=== PATIENT | female | born 1970 | race Caucasian/White ===

== ENCOUNTER 2016-06-28 13:25 | Emergency (ER) | payer BC, OTHER ==
[2016-06-28 13:54] VITALS: BP 111/65
--- NOTE | 2016-06-28 14:41 | UC ---
UC General HPI - HPI Summary HPI Summary: complaint of rash on her head that started 2 weeks ago tried lotirimin without relief complaint of new rash on her back legs and arms the rash started approx 1 week ago itching is worse at night when she has hot flashes has been using hydrocortisone cream /lotrim without any relief denies fever, denies new medications, foods, soaps lotions foods tried any new laundry soap for several days - History of Current Complaint Hx Obtained From: Patient <Lilliana Kam - Last Filed: 06/28/16 14:51> <Arsenio Power - Last Filed: 06/29/16 11:16> - History of Current Complaint Chief Complaint: UCSkin Stated Complaint: RASH - Allergy/Home Medications Allergies/Adverse Reactions: Allergies Allergy/AdvReac Type Severity Reaction Status Date / Time No Known Allergies Allergy Verified 09/27/15 19:45 PMH/Surg Hx/FS Hx/Imm Hx Previously Healthy: Yes Endocrine History Of: Denies: Diabetes, Thyroid Disease Cardiovascular History Of: Denies: Cardiac Disorders, Hypertension Respiratory History Of: Denies: COPD, Asthma GI/ History Of: Denies: Ulcer - Surgical History Surgical History: Yes Surgery Procedure, Year, and Place: Tubal, 2 C sections - Family History Known Family History: Positive: Hypertension Negative: Cardiac Disease, Diabetes - Social History Occupation: Employed Full-time Lives: With Family Alcohol Use: None Substance Use Type: None Smoking Status (MU): Light Every Day Tobacco Smoker Type: Cigarettes Amount Used/How Often: 6 cig./day Cessation Counseling: Patient Advised to Stop <Lilliana Kam - Last Filed: 06/28/16 14:51> Review of Systems Constitutional: Negative Skin: Rash Eyes: Negative ENT: Negative Respiratory: Negative Cardiovascular: Negative Gastrointestinal: Negative Genitourinary: Negative Motor: Negative Neurovascular: Negative Musculoskeletal: Negative Neurological: Negative Psychological: Negative All Other Systems Reviewed And Are Negative: Yes <Lilliana Kam - Last Filed: 06/28/16 14:51> Physical Exam Triage Information Reviewed: Yes Appearance: Well-Appearing, No Pain Distress, Well-Nourished Vital Signs: Initial Vital Signs Temp 98.2 F 06/28/16 13:49 Pulse 71 06/28/16 13:49 Resp 16 06/28/16 13:49 BP 111/65 06/28/16 13:49 Pulse Ox 98 06/28/16 13:49 Vital Signs Reviewed: Yes Eyes: Positive: Conjunctiva Clear ENT: Positive: Pharynx normal, TMs normal. Negative: Nasal congestion Neck: Positive: No Lymphadenopathy Respiratory: Positive: Lungs clear, Normal breath sounds, No respiratory distress, No accessory muscle use Cardiovascular: Positive: RRR, No Murmur, Pulses Normal Abdomen Description: Positive: Nontender, Soft Bowel Sounds: Positive: Present Musculoskeletal: Positive: No Edema Neurological: Positive: Alert Psychological Exam: Normal Skin: Positive: Other - right side of head- erythemaotus rash with yellow scaling -scattered areas of erythematous rash on arms and torso <Lilliana Kam - Last Filed: 06/28/16 14:51> Vital Signs: Initial Vital Signs Temp 98.2 F 06/28/16 13:49 Pulse 71 06/28/16 13:49 Resp 16 06/28/16 13:49 BP 111/65 06/28/16 13:49 Pulse Ox 98 06/28/16 13:49 <Arsenio Power - Last Filed: 06/29/16 11:16> Course/Dx - Differential Dx - Multi-Symptom Provider Diagnoses: impetigo, contact dermatitis <Lilliana Kam - Last Filed: 06/28/16 14:51> - Course Course Of Treatment: I was available for consultation. This patient was seen by mid level provider. The patient was not presented, seen, or examined by me. WR. <Arsenio Power - Last Filed: 06/29/16 11:16> Discharge <Lilliana Kam - Last Filed: 06/28/16 14:51> <Arsenio Power - Last Filed: 06/29/16 11:16> - Discharge Plan Condition: Stable Disposition: HOME Prescriptions: Mupirocin 2% OINT* [Bactroban 2 % Oint*] 1 applic TOPICAL BID #1 tube diPHENhydraMINE 2% CREAM(NF) [Benadryl 2% CREAM (NF)] 1 applic TOPICAL TID #1 tube Patient Education Materials: Contact Dermatitis (ED), Impetigo (ED) Referrals: Sana Bridges [Nurse Practitioner] - Additional Instructions: Start creams as directed Increase fluids and rest Please review your discharge instructions. If your symptoms do not improve please call your primary care provider or return to urgent care
== END 2016-06-28 15:06 | disposition home or self-care (01) ==
LOC: UCEAST 13:25
DX: L01.00 Impetigo, unspecified (principal); L25.9 Unspecified contact dermatitis, unspecified cause; F17.210 Nicotine dependence, cigarettes, uncomplicated
CPT/HCPCS: 99212; G0463

== ENCOUNTER 2016-09-13 15:40 | Emergency (ER) | payer BC ==
[2016-09-13 15:53] VITALS: BP 118/77
--- NOTE | 2016-09-13 16:08 | UC ---
Skin Complaint HPI - HPI Summary HPI Summary: rash on back of neck , arm, waist on left leg for 3 months--treated with bactroban and benadryl cream without relief- - History of Current Complaint Chief Complaint: UCRash Time Seen by Provider: 09/13/16 15:57 Stated Complaint: RASH Hx Obtained From: Patient Hx Last Menstrual Period: 08/17/16 ?: No Onset/Duration: Gradual Onset, Lasting Weeks, Still Present Timing: Constant Onset Severity: Moderate Current Severity: Moderate - awakes itching in the night-- Location: Diffuse Character: Pruritus, Raised Aggravating: Nothing Alleviating: Other - bactroban and benadryl cream Associated Signs & Symptoms: Positive: Rash - Allergy/Home Medications Allergies/Adverse Reactions: Allergies Allergy/AdvReac Type Severity Reaction Status Date / Time No Known Allergies Allergy Verified 09/13/16 15:54 Review of Systems Constitutional: Negative Skin: Rash Eyes: Negative ENT: Negative Respiratory: Negative Cardiovascular: Negative Gastrointestinal: Negative Genitourinary: Negative Motor: Negative Neurovascular: Negative Musculoskeletal: Negative Neurological: Negative Psychological: Negative All Other Systems Reviewed And Are Negative: Yes PMH/Surg Hx/FS Hx/Imm Hx Previously Healthy: Yes - Surgical History Surgical History: Yes Surgery Procedure, Year, and Place: Tubal, 2 C sections - Family History Known Family History: Positive: Hypertension Negative: Cardiac Disease, Diabetes - Social History Occupation: Employed Full-time Lives: With Family Alcohol Use: None Substance Use Type: None Smoking Status (MU): Light Every Day Tobacco Smoker Type: Cigarettes Amount Used/How Often: 6 cig./day Cessation Counseling: Patient Advised to Stop Physical Exam Triage Information Reviewed: Yes Appearance: Well-Appearing, No Pain Distress, Well-Nourished Vital Signs: Initial Vital Signs Temp 98.3 F 09/13/16 15:49 Pulse 89 09/13/16 15:49 Resp 18 09/13/16 15:49 BP 118/77 09/13/16 15:49 Pulse Ox 100 09/13/16 15:49 Vital Signs Reviewed: Yes Eye Exam: Normal Eyes: Positive: Conjunctiva Clear ENT Exam: Normal ENT: Positive: Normal ENT inspection, Hearing grossly normal, Pharynx normal, TMs normal. Negative: Nasal congestion, Nasal drainage, Tonsillar swelling, Tonsillar exudate, Trismus, Muffled/hoarse voice Dental Exam: Normal Neck exam: Normal Neck: Positive: Supple, Nontender Respiratory Exam: Normal Respiratory: Positive: Chest non-tender, No respiratory distress, No accessory muscle use Cardiovascular Exam: Normal Cardiovascular: Positive: RRR, No Murmur, Pulses Normal, Brisk Capillary Refill Musculoskeletal Exam: Normal Musculoskeletal: Positive: Strength Intact, ROM Intact, No Edema Neurological Exam: Normal Neurological: Positive: Alert, Muscle Tone Normal Psychological Exam: Normal Skin Exam: Normal Skin: Positive: rashes - as described Course/Dx - Course Course Of Treatment: prednisone, steroid cream, follow with dermatology - Differential Diagnoses - Skin Complaint Differential Diagnoses: Cellulitis, Contact Dermatitis, Impetigo - Diagnoses Provider Diagnoses: Atopic Dermatitis Discharge - Discharge Plan Condition: Stable Disposition: HOME Prescriptions: Triamcinolone 0.1% CREAM(NF) [Kenalog Cream 0.1%(NF)] 1 applic TOPICAL TID #60 gm predniSONE TAB* [Deltasone TAB*] 20 mg PO DAILY #8 tab Patient Education Materials: Contact Dermatitis (ED) Referrals: [facility] [Outside] (As for a dermatology appointment-----in 2 weeks)
== END 2016-09-13 16:26 | disposition home or self-care (01) ==
LOC: UCEAST 15:40
DX: L20.9 Atopic dermatitis, unspecified (principal); F17.210 Nicotine dependence, cigarettes, uncomplicated
CPT/HCPCS: 99212; G0463

== ENCOUNTER 2019-01-27 11:58 | Emergency (ER) | payer SELFPAY ==
[2019-01-27 13:03] VITALS: BP 120/73
--- NOTE | 2019-01-27 13:14 | UC ---
Throat Pain/Nasal Babatunde HPI - HPI Summary HPI Summary: This patient is a 48-year-old male who presents to the urgent care with a chief complaint sore throat, body aches, painful swallowing. She also reports chills and she thinks she might have a fever. She has no other complaints. - History of Current Complaint Chief Complaint: UCRespiratory Stated Complaint: SORE THROAT Time Seen by Provider: 01/27/19 13:00 Hx Obtained From: Patient Hx Last Menstrual Period: 3 months ago Onset/Duration: Gradual Onset Severity: Mild Pain Intensity: 4 - Allergies/Home Medications Allergies/Adverse Reactions: Allergies Allergy/AdvReac Type Severity Reaction Status Date / Time No Known Allergies Allergy Verified 01/27/19 13:03 Home Medications: Home Medications Ibuprofen TAB* [Advil TAB*] 400 mg PO Q6H PRN 01/27/19 [History Confirmed ] PMH/Surg Hx/FS Hx/Imm Hx Previously Healthy: Yes - Surgical History Surgical History: Yes Surgery Procedure, Year, and Place: Tubal, 2 C sections - Family History Known Family History: Positive: Hypertension Negative: Cardiac Disease, Diabetes - Social History Alcohol Use: Rare Substance Use Type: None Smoking Status (MU): Light Every Day Tobacco Smoker Type: Cigarettes Amount Used/How Often: 5-8 cig./day Review of Systems All Other Systems Reviewed And Are Negative: Yes Constitutional: Positive: Fever, Chills Skin: Positive: Negative Eyes: Positive: Negative ENT: Positive: Sore Throat Respiratory: Positive: Negative Cardiovascular: Positive: Negative Gastrointestinal: Positive: Negative Genitourinary: Positive: Negative Motor: Positive: Negative Neurovascular: Positive: Negative Musculoskeletal: Positive: Negative Neurological: Positive: Negative Psychological: Positive: Negative Is Patient Immunocompromised?: No Physical Exam - Summary Physical Exam Summary: Vital signs: Reviewed Gen.: Patient is a well developed and nourished female in no acute distress. Patient is sitting comfortably on the stretcher. Head: Normacephalic and atraumatic Eyes: PERRLA, EOMI x2. Ears: Right ear canal and TM WNL Left ear canal and TM WNL Nose Nose with dry mucosa and clear discharge. No sinus tenderness and mouth: Positive pharyngeal erythema with positive exudate. Neck: Supple, positive bilateral submandibular and anterior cervical lymphadenopathy. No JVD Lungs: CTA B/L CVS: S1 & S2 present. No murmurs appreciated. ABDOMEN: Soft NT w/ positive BS. EXT: FROM x 4 NEURO: A+O X 3. Triage Information Reviewed: Yes Appearance: Well-Appearing Vital Signs: Initial Vital Signs Temp 98.6 F 01/27/19 12:57 Pulse 90 01/27/19 12:57 Resp 16 01/27/19 12:57 BP 120/73 01/27/19 12:57 Pulse Ox 96 01/27/19 12:57 Vital Signs Reviewed: Yes Throat Pain/Nasal Course/Dx - Course Course Of Treatment: Rapid strep: Negative However the patient has exudates therefore the patient has a bacterial pharyngitis. Therefore he was given a prescription for Augmentin for 10 days. The patient was instructed to follow with the primary care physician. She was instructed to return to the emergency department if the symptoms worsen. She understands and agrees - Differential Dx/Diagnosis Provider Diagnosis: Pharyngitis Discharge ED - Sign-Out/Discharge Documenting (check all that apply): Patient Departure All imaging exams completed and their final reports reviewed: No Studies - Discharge Plan Condition: Stable Disposition: HOME Prescriptions: Amoxicillin/Clavulanate TAB* [Augmentin TAB 875*] 875 mg PO BID #20 tab Patient Education Materials: Pharyngitis (ED) Referrals: [facility] [place] [facility] [Outside] No Primary Care Phys,NOPCP [Primary Care Provider] - Additional Instructions: Take medications as instructed Increase your fluid intake F/U with PCP in the next 2-3 days Return to the if symptoms worsen - Billing Disposition and Condition Condition: STABLE Disposition: Home
== END 2019-01-27 13:19 | disposition home or self-care (01) ==
LOC: UCEAST 11:58
DX: J02.9 Acute pharyngitis, unspecified (principal); F17.210 Nicotine dependence, cigarettes, uncomplicated
CPT/HCPCS: 87651; 99212; G0463

== ENCOUNTER 2019-06-01 09:52 | Emergency (ER) | payer BC ==
[2019-06-01 10:02] VITALS: BP 112/75
--- NOTE | 2019-06-01 10:05 | UC ---
Complaint Female HPI - HPI Summary HPI Summary: 48 yo female presents with LEFT flank pain. She tells me that for the last 2-3 days she has been having left flank pain that radiates to her left abdomen and LLQ abdomen. Last night pain significantly increased and she had trouble sleeping. She has noticed that her urine seems malodorous during this time. Area hurts with movement and palpating the area. She has not taken anything OTC for her symptoms. She has never had a kidney stone in the past. Denies fever, chills, n/v, dysuria, hematuria, vaginal bleeding or discharge. No injury. - History Of Current Complaint Chief Complaint: UCGU Stated Complaint: SIDE PAIN Time Seen by Provider: 06/01/19 10:03 Hx Obtained From: Patient Hx Last Menstrual Period: 3 months ago Onset/Duration: Sudden Onset Timing: Constant Severity Initially: Mild Severity Currently: Moderate Pain Intensity: 5 Pain Scale Used: 0-10 Numeric - Allergies/Home Medications Allergies/Adverse Reactions: Allergies Allergy/AdvReac Type Severity Reaction Status Date / Time No Known Allergies Allergy Verified 06/01/19 09:57 Home Medications: Home Medications NK [No Home Medications Reported] 06/01/19 [History Confirmed 06/01/19] PMH/Surg Hx/FS Hx/Imm Hx - Additional Past Medical History Additional PMH: None - Surgical History Surgical History: Yes Surgery Procedure, Year, and Place: Tubal, 2 C sections - Family History Known Family History: Positive: Hypertension Negative: Cardiac Disease, Diabetes - Social History Lives: With Family Alcohol Use: None Substance Use Type: None Smoking Status (MU): Light Every Day Tobacco Smoker Type: Cigarettes Amount Used/How Often: 5-8 cig./day Review of Systems All Other Systems Reviewed And Are Negative: No Constitutional: Positive: Negative Skin: Positive: Negative Respiratory: Positive: Negative Cardiovascular: Positive: Negative Gastrointestinal: Positive: Negative Genitourinary: Positive: Other - Flank pain Neurovascular: Positive: Negative Musculoskeletal: Positive: Negative Neurological/Mental Status: Positive: Negative Psychological: Positive: Negative Physical Exam - Summary Physical Exam Summary: GENERAL: NAD. WDWN. No pain distress. SKIN: No rashes, sores, lesions, or open wounds. NECK: Supple. Nontender. No lymphadenopathy. CHEST: CTAB. No r/r/w. No accessory muscle use. Breathing comfortably and in no distress. CV: RRR. Pulses intact. Cap refill <2seconds ABDOMEN: Soft. NTTP. No distention or guarding. Mild LEFT CVA tenderness. Bowel sounds present MSK: Pain in left CVA area with raising arms above head and truncal twisting. NEURO: Alert. PSYCH: Age appropriate behavior. Triage Information Reviewed: Yes Vital Signs: Initial Vital Signs Temp 98.1 F 06/01/19 09:57 Pulse 90 06/01/19 09:57 Resp 18 06/01/19 09:57 BP 112/75 06/01/19 09:57 Pulse Ox 99 06/01/19 09:57 Laboratory Tests 06/01/19 06/01/19 10:10 10:12 POC Urine Color Yellow POC Urine Clarity Slightly cloudy POC Urine pH 6.5 POC Ur Specif [place] 1.020 POC Urine Protein Negative POC Ur Glucose (UA) Negative POC Urine Ketones Negative POC Urine Blood 1+ A POC Urine Nitrite Negative POC Urine Bilirubin Negative POC Urine Urobilinogen 0.2 POC U Leukocyte Esteras Negative POC Ur Test Negative Vital Signs Reviewed: Yes Complaint Female Dx - Course Course Of Treatment: UA as above. Given her microscopic hematuria, left flank pain with radiation into left abdomen, and CVA tenderness - recommend going to ED for concern of kidney stone. Also possible MSK strain. - Differential Dx/Diagnosis Provider Diagnosis: Left flank pain Discharge ED - Sign-Out/Discharge Documenting (check all that apply): Patient Departure All imaging exams completed and their final reports reviewed: No Studies - Discharge Plan Condition: Stable Disposition: HOME-RECOMMEND TO ED Referrals: No Primary Care Phys,NOPCP [Primary Care Provider] - Additional Instructions: I recommend that you go to the ER for further evaluation of your flank pain. Concern for kidney stone today - Billing Disposition and Condition Condition: STABLE Disposition: Home-Recommend to ED
== END 2019-06-01 10:25 | disposition home health service (06) ==
LOC: UCEAST 09:52
DX: R10.32 Left lower quadrant pain (principal); F17.210 Nicotine dependence, cigarettes, uncomplicated
CPT/HCPCS: 81003; 84702; 99212; G0463

== ENCOUNTER 2019-06-01 11:47 | Emergency (ER) | payer BC ==
[2019-06-01 12:22] LABS: ABS Basophils 0.1 10^3/ul (0-0.2); ABS Eosinophils 0.1 10^3/ul (0-0.6); ABS Lymphocytes 2.8 10^3/ul (1.0-4.8); ABS Monocytes 0.5 10^3/ul (0-0.8); ABS Neutrophils 5.1 10^3/ul (1.5-7.7); Eosinophil % 1.1 %; Hematocrit 42 % (35-47); Hemoglobin 14.5 g/dL (12.0-16.0); Lymphocyte % 32.9 %; Mean Corpuscular HGB Conc 35 g/dL (31-36); Mean Corpuscular Hemoglobin 32 pg (27-31); Mean Corpuscular Volume 91 fL (80-97); Mean Platelet Volume 8.8 fL (7.4-10.4); Platelet Count 232 10^3/uL (150-450); Red Blood Count 4.58 10^6 /uL (3.70-4.87); Red Cell Distribution Width 14 % (10-15); White Blood Count 8.7 10^3/uL (3.5-10.8)
[2019-06-01 12:43] LABS: ALT 11 U/L (7-52); AST 15 U/L (13-39); Albumin 4.5 g/dL (3.2-5.2); Albumin/Globulin Ratio 1.8 (1-3); Alkaline Phosphatase 79 U/L (34-104); Anion Gap 6 mmol/L (2-11); BUN/Creatinine Ratio 21.1 (8-20); Blood Urea Nitrogen 16 mg/dL (6-24); C Reactive Protein < 1.00 mg/L (<8.01); CO2 Carbon Dioxide 25 mmol/L (22-32); Calcium 9.4 mg/dL (8.6-10.3); Chloride 107 mmol/L (101-111); EGFR African American 97.9 (>60); EGFR Non-African American 80.9 (>60); Globulin 2.5 g/dL (2-4); Glucose 94 mg/dL (70-100); Potassium 4.3 mmol/L (3.5-5.0); Sodium 138 mmol/L (135-145)
--- NOTE | 2019-06-01 12:46 | ED ---
Abdominal Pain/Female - HPI Summary HPI Summary: This patient is presenting to the ED with left-sided flank pain times approximately 2 weeks. She states the symptoms have been worsening over the past 3 days. She is endorsing pain to the left flank radiating around to the side into the left lower quadrant. Denies any urinary symptoms. Denies denies any vaginal discharge. Denies any nausea or vomiting currently, however she has intermittently had some nausea over the past few weeks. She denies any fevers or chills, however has been having intermittent sweats. She states she is having night sweats and this is typical for her with hormonal changes. Denies diarrhea or constipation. NO chest pain or SOB. - History of Current Complaint Chief Complaint: EDFlankPain Stated Complaint: POSS KIDNEY STONES PER PT Time Seen by Provider: 06/01/19 12:08 Hx Obtained From: Patient Hx Last Menstrual Period: 3 months ago ?: No Onset/Duration: Sudden Onset Timing: Constant Severity Initially: Moderate Severity Currently: Moderate Pain Intensity: 5 Pain Scale Used: 0-10 Numeric Radiates: No Aggravating Factor(s): Nothing Alleviating Factor(s): Nothing Associated Signs and Symptoms: Positive: Negative - Risk Factors Ectopic Risk Factor: Negative Ovarian Torsion Risk Factor: Negative Allergies/Adverse Reactions: Allergies Allergy/AdvReac Type Severity Reaction Status Date / Time No Known Allergies Allergy Verified 06/01/19 11:50 Home Medications: Home Medications NK [No Home Medications Reported] 06/01/19 [History Confirmed 06/01/19] PMH/Surg Hx/FS Hx/Imm Hx Previously Healthy: Yes Endocrine/Hematology History: Denies: Hx Diabetes, Hx Thyroid Disease Cardiovascular History: Denies: Hx Hypertension Respiratory History: Denies: Hx Asthma, Hx Chronic Obstructive Pulmonary Disease (COPD) GI History: Denies: Hx Ulcer - Surgical History Surgery Procedure, Year, and Place: Tubal, 2 C sections - Immunization History Hx Pertussis Vaccination: No Immunizations Up to Date: Yes Infectious Disease History: No Infectious Disease History: Denies: Hx Hepatitis, Hx Human Immunodeficiency Virus (HIV), History Other Infectious Disease, Traveled Outside the [place] in Last 30 Days - Family History Known Family History: Positive: Hypertension Negative: Cardiac Disease, Diabetes - Social History Occupation: Unemployed Lives: With Family Alcohol Use: None Hx Substance Use: No Substance Use Type: Reports: None Smoking Status (MU): Light Every Day Tobacco Smoker Type: Cigarettes Amount Used/How Often: 5-8 cig./day Review of Systems Negative: Fever, Chills, Fatigue, Skin Diaphoresis Negative: Palpitations, Chest Pain Negative: Shortness Of Breath, Cough Positive: Abdominal Pain, Nausea. Negative: Vomiting, Diarrhea Positive: hematuria Negative: Myalgia Negative: Rash, Bruising Neurological/Mental Status: Negative All Other Systems Reviewed And Are Negative: Yes Physical Exam Triage Information Reviewed: Yes Vital Signs On Initial Exam: Initial Vitals Temp Pulse Resp BP Pulse Ox 98.0 F 94 16 123/88 98 06/01/19 11:48 06/01/19 11:48 06/01/19 11:48 06/01/19 11:48 06/01/19 11:48 Vital Signs Reviewed: Yes Appearance: Positive: Well-Appearing, Well-Nourished Skin: Positive: Warm, Skin Color Reflects Adequate Perfusion Head/Face: Positive: Normal Head/Face Inspection Eyes: Positive: EOMI, JOHANA, Conjunctiva Clear Neck: Positive: Supple, No Lymphadenopathy Respiratory/Lung Sounds: Positive: Clear to Auscultation, Breath Sounds Present Cardiovascular: Positive: Pulses are Symmetrical in both Upper and Lower Extremities Abdomen Description: Positive: Nontender, No Organomegaly, CVA Tenderness (R). Negative: CVA Tenderness (L), Distended, Guarding Musculoskeletal: Positive: Normal, Strength/ROM Intact Neurological: Positive: Speech Normal Psychiatric: Positive: Normal, Affect/Mood Appropriate AVPU Assessment: Alert Procedures - Sedation Patient Received Moderate/Deep Sedation with Procedure: No Diagnostics - Vital Signs Vital Signs Temp Pulse Resp BP Pulse Ox 06/01/19 11:48 98.0 F 94 16 123/88 98 - Laboratory Lab Results: Lab Results 06/01/19 Range/Units 12:16 WBC 8.7 (3.5-10.8) 10^3/uL RBC 4.58 (3.70-4.87) 10^6 /uL Hgb 14.5 (12.0-16.0) g/dL Hct 42 (35-47) % MCV 91 (80-97) fL MCH 32 H (27-31) pg MCHC 35 (31-36) g/dL RDW 14 (10-15) % Plt Count 232 (150-450) 10^3/uL MPV 8.8 (7.4-10.4) fL Neut % (Auto) 58.7 % Lymph % (Auto) 32.9 % Parker % (Auto) 6.3 % Eos % (Auto) 1.1 % Baso % (Auto) 1.0 % Absolute Neuts (auto) 5.1 (1.5-7.7) 10^3/ul Absolute Lymphs (auto) 2.8 (1.0-4.8) 10^3/ul Absolute Monos (auto) 0.5 (0-0.8) 10^3/ul Absolute Eos (auto) 0.1 (0-0.6) 10^3/ul Absolute Basos (auto) 0.1 (0-0.2) 10^3/ul Absolute Nucleated RBC 0.0 10^3/ul Nucleated RBC % 0.0 Result Diagrams: 06/01/19 12:16 06/01/19 12:16 Lab Statement: Any lab studies that have been ordered have been reviewed, and results considered in the medical decision making process. Abdominal Pain Fem Course/Dx - Course Course Of Treatment: Patient evaluated for L flank pain intermittently x [address] abd pelvis: IMPRESSION: NO APPRECIABLE HYDRONEPHROSIS OR NEPHROLITHIASIS. Patient is NAD. Tenderness to the L flank on palpation and movement without pain to the abd. Urine at shows microscopic hematuria. Pt has no sxs currently and will be DCd with f/u to PCP. - Diagnoses Differential Diagnosis: Positive: Renal Colic, Urinary Tract Infection, Other - muscle strain Provider Diagnoses: Left-sided back pain Discharge ED - Sign-Out/Discharge Documenting (check all that apply): Patient Departure - Discharge Plan Condition: Stable Disposition: HOME Patient Education Materials: Back Pain (ED) Referrals: No Primary Care Phys,NOPCP [Primary Care Provider] - Additional Instructions: Please follow up with your PCP if you have any worsening or changing symptoms Ibuprofen 600mg four times daily and moist heat to the area for discomfort - Billing Disposition and Condition Condition: STABLE Disposition: Home - Attestation Statements Provider Attestation: I was available for consult. This patient was seen by the [facility]. The patient was not presented to, seen by, or examined by me. Panda Conner MD
[2019-06-01 12:49] LABS: HCG Pregnancy 1.79 mIU/mL
[2019-06-01 13:24] VITALS: BP 126/86
== END 2019-06-01 13:23 | disposition home or self-care (01) ==
LOC: ED 11:47
DX: M54.9 Dorsalgia, unspecified (principal); R10.9 Unspecified abdominal pain; R11.0 Nausea; R31.9 Hematuria, unspecified; F17.210 Nicotine dependence, cigarettes, uncomplicated
CPT/HCPCS: 36415; 74176; 80053; 83605; 83690; 83735; 84702; 85025; 86140; 99282

== ENCOUNTER 2023-03-13 13:58 | Observation (INO) ==
[~2023-03-13 13:58] MED LIST: Buffered Lidocaine 1% SYRIN 1 ml INTRADERM ONE; HYDROcodone/ACETAMIN 5/325 mg TAB PO PRN; Lactated Ringers 1000 ml BAG 1,000 ML IV SCH; Metoclopramide 5 MG/ML VIAL (10 mg) IV PRN; Naloxone 0.4 mg VIAL 0.4 mg/ml 1 ml VIAL IV PRN; Ondansetron 4 mg VIAL 2 MG/ML 2 ml VIAL IV PRN
[2023-03-13] MEDS ORDERED: ceFAZolin 2 GM in NS PREMIX 2 GM/100 ML BAG IVPB ONE (16:09)
[2023-03-13 16:28] LABS: Rapid COVID-19 Molecular Undetected (Undetected)
[2023-03-13] MEDS ORDERED: Dexamethasone IV 4 MG/ML VIAL 1 ml VIAL ONE (17:47)
[2023-03-13] MEDS ORDERED: fentaNYL 100 mcg/2 ml 50 MCG/ML VIAL ONE ×3 (17:47→22:55)
[2023-03-13] MEDS ORDERED: Propofol 10 MG/ML 20 ML BTL ONE (17:47)
[2023-03-13] MEDS ORDERED: Midazolam 2 mg/2 ml VIAL 1 mg/ml 2 ml VIAL (2 mg) ONE (17:47)
[2023-03-13] MEDS ORDERED: Lidocaine 2% PF 5 ML VIAL ONE (17:47)
[2023-03-13] MEDS ORDERED: Ondansetron 4 mg VIAL 2 MG/ML 2 ml VIAL ONE (17:47)
[2023-03-13] MEDS ORDERED: Rocuronium 50 mg VIAL 10 mg/ml 5 ml VIAL (50 mg) ONE (18:38)
[2023-03-13] MEDS ORDERED: Bupivacaine 0.25% SDV 30 ML ONE (19:19)
[2023-03-13] MEDS ORDERED: Lidocaine 2% w EPI 1:100,000 20 ML MDV VIAL ONE (19:20)
[2023-03-13] MEDS ORDERED: Desflurane 240 ML INH ONE (20:52)
[2023-03-13] MEDS ORDERED: Metoclopramide 5 MG/ML VIAL (10 mg) IV SLOW PU PRN (22:28)
[2023-03-13] MEDS ORDERED: Scopolamine 1 mg/72hr PATCH TRANSDERM PRN (22:29)
[2023-03-13] MEDS: fentaNYL 100 mcg/2 ml 50 MCG/ML VIAL IV PRN ×4 (22:58→23:49)
[2023-03-14] MEDS: Lactated Ringers 1000 ml BAG 1,000 ML IV SCH ×3 (01:39→22:39)
[2023-03-14] MEDS: Ondansetron 4 mg VIAL 2 MG/ML 2 ml VIAL IV SCH ×8 (01:47→23:54)
[2023-03-14] MEDS: HYDROcodone/ACET. 7.5/325 LIQ 15 ML UDC PO PRN ×3 (01:51→21:46)
[2023-03-14] MEDS: HYDROmorphone 0.5 MG/0.5 ML SYRINGE IV SLOW PU PRN (05:28)
[2023-03-14] MEDS: Enoxaparin 40 MG/0.4 ML SYR SUBCUT SCH (09:23)
[2023-03-15] MEDS: HYDROmorphone 0.5 MG/0.5 ML SYRINGE IV SLOW PU PRN ×2 (00:05→05:59)
[2023-03-15] MEDS: Ondansetron 4 mg VIAL 2 MG/ML 2 ml VIAL IV SCH ×2 (05:54→12:01)
[2023-03-15] MEDS: Enoxaparin 40 MG/0.4 ML SYR SUBCUT SCH (08:50)
[2023-03-15] MEDS ORDERED: Pantoprazole VIAL 40 MG VIAL IV SCH (09:00)
[2023-03-15] MEDS: HYDROcodone/ACET. 7.5/325 LIQ 15 ML UDC PO PRN (09:03)
[2023-03-15] MEDS: Lactated Ringers 1000 ml BAG 1,000 ML IV SCH (09:04)
[2023-03-15 10:12] VITALS: BP 115/65
== END 2023-03-15 14:13 | disposition home or self-care (01) ==
LOC: OR 13:58 → SSU 13:58
PROVIDERS: ADMIT Surgery; ATTEND Surgery